=== PATIENT | male | born 1995 | race Hispanic/Latino ===

== ENCOUNTER 2017-03-08 19:17 | Emergency (ER) | payer OTHER ==
[2017-03-08] MEDS ORDERED: Sodium Chloride 0.9% 1,000 ML IV ONE (20:10)
--- NOTE | 2017-03-08 20:10 | C.PDOC ---
History Of Present Illness 22 y/o male presents to the ED with complains of abdominal pain, diarrhea x8 days. Pt reports loose pasty greenish stools. Abdominal pain is dull, achy, nonradiating. Denies fever, chills, nausea, vomiting, or any other complaints. Pt started taking vitamin D supplements after being told he was deficient. Time Seen by Provider: 03/08/17 20:09 Chief Complaint (Nursing): GI Problem History Per: Patient History/Exam Limitations: no limitations Onset/Duration Of Symptoms: Days (8) Current Symptoms Are (Timing): Still Present Context: Other Severity: Moderate Pain Scale Rating Of: 4 Location Of Pain/Discomfort: Diffuse Radiation Of Pain To:: None Quality Of Discomfort: Dull Associated Symptoms: Diarrhea. denies: Fever, Chills Exacerbating Factors: Food Alleviating Factors: None Last Bowel Movement: Today Recent travel outside of the [place]: No Additional History Per: Patient Past Medical History Reviewed: Historical Data, Nursing Documentation, Vital Signs Vital Signs: Last Vital Signs Temp 99.1 F 03/08/17 19:34 Pulse 108 H 03/08/17 19:34 Resp 18 03/08/17 19:34 BP 121/82 03/08/17 19:34 Pulse Ox 99 03/08/17 21:20 Family History: States: No Known Family Hx - Social History Hx Tobacco Use: No Hx Alcohol Use: Yes Hx Substance Use: No - Immunization History Hx Tetanus Toxoid Vaccination: Yes Hx Influenza Vaccination: No Hx Pneumococcal Vaccination: No Review Of Systems Constitutional: Negative for: Fever, Chills Eyes: Negative for: Other ENT: Negative for: Throat Pain Cardiovascular: Negative for: Chest Pain, Palpitations Respiratory: Negative for: Shortness of Breath Gastrointestinal: Positive for: Abdominal Pain, Diarrhea. Negative for: Nausea , Vomiting Genitourinary: Negative for: Frequency Musculoskeletal: Negative for: Back Pain Skin: Negative for: Rash, Lesions, Jaundice, Bruising Neurological: Negative for: Weakness Psych: Negative for: Anxiety Physical Exam - Physical Exam Appears: Non-toxic, No Acute Distress Skin: Warm, Dry Head: Normacephalic Eye(s): bilateral: Normal Inspection Oral Mucosa: Moist Neck: Trachea Midline, Supple Chest: Symmetrical Cardiovascular: Rhythm Regular Respiratory: No Rales, No Rhonchi, No Wheezing Gastrointestinal/Abdominal: Soft, No Tenderness, No Distention, No Guarding, No Rebound Back: Normal Inspection Extremity: Normal ROM Extremity: Bilateral: Atraumatic, Normal Color And Temperature Neurological/Psych: Oriented x3, Normal Speech, Normal Cognition Gait: Steady ED Course And Treatment - Laboratory Results Result Diagrams: 03/08/17 21:11 03/08/17 21:11 O2 Sat by Pulse Oximetry: 99 (room air) Pulse Ox Interpretation: Normal Progress Note: blood work, ivf, stool cultures Reevaluation Time: 00:16 Reassessment Condition: Improved Medical Decision Making Medical Decision Making: Upon provider reevaluation patient is feeling better, is medically stable, and requires no further treatment in the ED at this time. Patient will be discharged home with Rx for flagyl and cipro . Counseling was provided and all questions were answered regarding diagnosis and need for follow up with dr salazar. There is agreement to discharge plan. Return if symptoms persist or worsen. Disposition Counseled Patient/Family Regarding: Studies Performed, Diagnosis, Need For Followup, Rx Given - Disposition Referrals: Ruiz Salazar MD [Primary Care Provider] - Disposition: HOME/ ROUTINE Disposition Time: 20:10 Condition: FAIR Additional Instructions: Please return if symptoms recur Prescriptions: Ciprofloxacin [Cipro] 1 tab PO BID #14 tab Metronidazole [Flagyl] 500 mg PO TID #21 tablet Instructions: Abdominal Pain (ED), Gas and Bloating (ED), Colitis (ED) - Clinical Impression Clinical Impression: Abdominal pain, Colitis - Scribe Statement The provider has reviewed the documentation as recorded by the Alesia Haskins Provider Attestation: All medical record entries made by the Alesia were at my direction and personally dictated by me. I have reviewed the chart and agree that the record accurately reflects my personal performance of the history, physical exam, medical decision making, and the department course for this patient. I have also personally directed, reviewed, and agree with the discharge instructions and disposition.
[2017-03-08] MEDS ORDERED: Sodium Chloride 0.9% 1,000 ML ONE (20:39)
[2017-03-08 21:17] LABS: BASO % 0.8 % (0.0-2.0); EOS % 0.5 % (0.0-4.0); HEMOGLOBIN 15.5 g/dL (12.0-18.0); LYMPH # 2.2 K/uL (1.0-4.3); LYMPH % 41.2 % (20.0-40.0); MEAN CELL VOLUME 81.4 fL (80.0-94.0); MEAN CORPUSCULAR HEMOGLOBIN 28.7 pg (27.0-31.0); MEAN CORPUSCULAR HGB CONC 35.3 g/dL (33.0-37.0); MEAN PLATELET VOLUME 8.5 fL (7.2-11.7); MONO # 0.4 K/uL (0.0-0.8); MONO % 8.3 % (0.0-10.0); NEUT # 2.6 K/uL (1.8-7.0); NEUT % 49.2 % (50.0-75.0); NRBC % 0.4 % (0.0-2.0); RBC 5.38 Mil/uL (4.40-5.90); RED CELL DISTRIBUTION WIDTH 12.3 % (11.5-14.5); WHITE BLOOD COUNT 5.3 K/uL (4.8-10.8)
[2017-03-08 21:31] LABS: ALBUMIN 4.3 g/dL (3.5-5.0)
[2017-03-08 21:33] LABS: GFR AFRICAN-AMERICAN > 60; GFR NON-AFRICAN AMERICAN > 60
[2017-03-08 21:34] LABS: ALB/GLOB RATIO 1.4 (1.0-2.1); ALT/SGPT 70 U/L (21-72); AST/SGOT 40 U/L (17-59); BLOOD UREA NITROGEN 13 mg/dL (9-20); CALCIUM 8.8 mg/dl (8.6-10.4); LIPASE 98 U/L (23-300)
[2017-03-08 22:47] LABS: URINE BACTERIA RARE (<OCC); URINE BILIRUBIN NEGATIVE (NEGATIVE); URINE BLOOD NEGATIVE (NEGATIVE); URINE CLARITY Clear (Clear); URINE COLOR Yellow (YELLOW); URINE GLUCOSE (UA) NORMAL (Normal); URINE LEUKOCYTE ESTERASE NEG Leu/uL (Negative); URINE NITRATE NEGATIVE (NEGATIVE); URINE PROTEIN NEGATIVE (NEGATIVE); URINE UROBILINOGEN NORMAL mg/dL (0.2-1.0)
[2017-03-08] MEDS ORDERED: Iohexol 350mg/ml 100 ML ONE (23:19)
[2017-03-08] MEDS ORDERED: metroNIDAZOLE IV 500 mg/100 ml 500 MG/100 ML BAG IVPB SCH (23:45)
[2017-03-09] MEDS ORDERED: metroNIDAZOLE IV 500 mg/100 ml 500 MG/100 ML BAG ONE (00:21)
[2017-03-09 01:10] VITALS: BP 126/72; PULSE 78; RESP 20; TEMP 98; O2SAT 98
--- NOTE | 2017-03-09 06:49 | CT ---
PROCEDURE: CT Abdomen and Pelvis without intravenous contrast HISTORY: Diffuse abdominal pain. Diarrhea. COMPARISON: None. TECHNIQUE: Multiple contiguous axial images were performed through the abdomen and pelvis with the use of intravenous contrast. Subsequently, sagittal and coronal reformatted images were obtained. Radiation dose: Total exam DLP = 1232 mGy-cm. This CT exam was performed using one or more of the following dose reduction techniques: Automated exposure control, adjustment of the mA and/or kV according to patient size, and/or use of iterative reconstruction technique. FINDINGS: LOWER THORAX: Unremarkable. LIVER: Unremarkable. No gross lesion or ductal dilatation. GALLBLADDER AND BILE DUCTS: Unremarkable. PANCREAS: Unremarkable. No gross lesion or ductal dilatation. SPLEEN: Moderate splenomegaly. ADRENALS: Unremarkable. No mass. KIDNEYS AND URETERS: Unremarkable. No hydronephrosis. No solid mass. VASCULATURE: Unremarkable. No aortic aneurysm. BOWEL: Apparent mild mural thickening of the ascending, transverse, and descending colon. No gross obstruction. APPENDIX: Mildly prominent measuring up to 7 millimeters in diameter. PERITONEUM: Trace free fluid in the pelvis. LYMPH NODES: Several borderline enlarged mesenteric lymph nodes. BLADDER: Unremarkable. REPRODUCTIVE: Unremarkable. BONES: Bone island in the left iliac bone. OTHER FINDINGS: Tiny fat containing umbilical hernia. IMPRESSION: Mild mural thickening of the ascending, transverse, and descending colon. This may represent an underlying colitis, possibly infectious and or inflammatory. Additional etiologies not excluded. Clinical correlation. Borderline enlarged appendix measuring up to 7 millimeters in diameter. This may be reactive; however, acute appendicitis cannot be entirely excluded on the basis of these images. Clinical correlation. Splenomegaly. Scattered prominent mesenteric lymph nodes. Additional findings as above. These findings were preliminarily reported at 12:13 a.m. on 03/09/[address] Michel Thao from [employer].
== END 2017-03-09 01:09 | disposition home or self-care (01) ==
LOC: C.ER 19:17 → SUPCPDRO 19:17 → C.ER 03-09 01:09
DX: K52.9 Noninfective gastroenteritis and colitis, unspecified (principal); R10.9 Unspecified abdominal pain
CPT/HCPCS: 74177; 80053; 81001; 83690; 85025; 87045; 87206; 87230; 89055; 96361; 96374; 99284; J7040; Q9967